=== PATIENT | female | born 1955 | race Asian ===

== ENCOUNTER 2019-03-09 08:17 | Day surgery (SDC) | payer MEDICARE | END 2019-03-09 10:10 | disposition home or self-care (01) | LOC: OR 08:17 | PROC: 3E0T3BZ Introduction of Anesthetic Agent into Peripheral Nerves and Plexi, Percutaneous Approach (ICD-10-PCS; principal; 2019-03-09) | PROC: BR16YZZ Fluoroscopy of Lumbar Facet Joint(s) using Other Contrast (ICD-10-PCS; 2019-03-09) | DX: M47.817 Spondylosis without myelopathy or radiculopathy, lumbosacral region (principal) | CPT/HCPCS: J2001 ==

== ENCOUNTER 2019-03-30 09:42 | Day surgery (SDC) | payer OTHER ==
[~2019-03-30] VITALS: Ht 162.6 cm; Wt 119.7 kg
== END 2019-03-30 11:16 | disposition home or self-care (01) ==
LOC: OR 09:42
PROC: 3E0T3BZ Introduction of Anesthetic Agent into Peripheral Nerves and Plexi, Percutaneous Approach (ICD-10-PCS; principal; 2019-03-30)
PROC: 3E0T33Z Introduction of Anti-inflammatory into Peripheral Nerves and Plexi, Percutaneous Approach (ICD-10-PCS; 2019-03-30)
PROC: BR16YZZ Fluoroscopy of Lumbar Facet Joint(s) using Other Contrast (ICD-10-PCS; 2019-03-30)
DX: M47.817 Spondylosis without myelopathy or radiculopathy, lumbosacral region (principal)
CPT/HCPCS: J1100; J2001

== ENCOUNTER 2019-04-26 09:16 | Day surgery (SDC) | payer OTHER | END 2019-04-26 12:00 | disposition home or self-care (01) | LOC: OR 09:16 | PROC: 3E0T3TZ Introduction of Destructive Agent into Peripheral Nerves and Plexi, Percutaneous Approach (ICD-10-PCS; principal; 2019-04-26) | PROC: BR16YZZ Fluoroscopy of Lumbar Facet Joint(s) using Other Contrast (ICD-10-PCS; 2019-04-26) | DX: M47.817 Spondylosis without myelopathy or radiculopathy, lumbosacral region (principal) | CPT/HCPCS: J2001 ==

== ENCOUNTER 2019-11-15 10:43 | Day surgery (SDC) | payer OTHER | END 2019-11-15 14:00 | disposition home or self-care (01) | LOC: OR 10:43 | PROC: 3E0R33Z Introduction of Anti-inflammatory into Spinal Canal, Percutaneous Approach (ICD-10-PCS; principal; 2019-11-15) | PROC: B01BYZZ Fluoroscopy of Spinal Cord using Other Contrast (ICD-10-PCS; 2019-11-15) | DX: M51.17 Intervertebral disc disorders with radiculopathy, lumbosacral region (principal) | CPT/HCPCS: J1020 ==

== ENCOUNTER 2020-03-22 09:19 | Day surgery (SDC) | payer OTHER ==
[~2020-03-22] VITALS: Ht 30.5 cm; Wt 0.5 kg
== END 2020-03-22 11:23 | disposition home or self-care (01) ==
LOC: OR 09:19
PROC: 3E0R33Z Introduction of Anti-inflammatory into Spinal Canal, Percutaneous Approach (ICD-10-PCS; principal; 2020-03-22)
PROC: B01BYZZ Fluoroscopy of Spinal Cord using Other Contrast (ICD-10-PCS; 2020-03-22)
DX: M51.16 Intervertebral disc disorders with radiculopathy, lumbar region (principal)
CPT/HCPCS: J1020; J3301